=== PATIENT | male | born 2000 | race Caucasian/White ===

== ENCOUNTER → 2020-07-03 | Outpatient (CLI) | payer OTHER | END | disposition home or self-care (01) | LOC: LABWHC1 13:29 | PROVIDERS: ATTEND Family Medicine | DX: Z20.822 Contact with and (suspected) exposure to COVID-19 (principal) | CPT/HCPCS: U0003; C9803; U0005 ==

== ENCOUNTER 2021-10-07 20:49 | Emergency (ER) | payer OTHER ==
[2021-10-07 22:18] VITALS: BP 152/92; PULSE 72; RESP 18; TEMP 98.2
--- NOTE | 2021-10-08 00:37 | ED ---
General Adult HPI - General Chief complaint: Nausea/Vomiting/Diarrhea Stated complaint: Evaluation Time Seen by Provider: 10/07/21 23:36 Source: patient Mode of arrival: EMS - History of Present Illness Initial comments: 's patient is 21-year-old man resenting to be evaluated after he used a strong cannabis pen and then was not feeling well. Patient developed nausea and was fe eling very sick to stomach. Also somewhat off-balance. -: minutes(s) Location: abdomen Severity scale (1-10): 1 Quality: dull Consistency: now resolved Improves with: none Worsens with: none Associated Symptoms: nausea/vomiting - Related Data Allergies Allergy/AdvReac Type Severity Reaction Status Date / Time No Known Allergies Allergy Verified 10/07/21 22:19 Review of Systems ROS Statement: Those systems with pertinent positive or pertinent negative responses have been documented in the HPI. ROS Other: All systems not noted in ROS Statement are negative. Constitutional: Denies: fever, chills, weakness Eyes: Denies: vision change Respiratory: Denies: cough, dyspnea Cardiovascular: Denies: chest pain, palpitations Gastrointestinal: Reports: nausea. Denies: diarrhea, hematemesis, melena, hematochezia Genitourinary: Denies: dysuria, hematuria Musculoskeletal: Denies: back pain Skin: Denies: rash Neurological: Denies: headache, weakness Psychiatric: Reports: anxiety Past Medical History Additional Past Medical History / Comment(s): cyst on brain History of Any Multi-Drug Resistant Organisms: None Reported Past Surgical History: No Surgical Hx Reported Past Psychological History: No Psychological Hx Reported Smoking Status: Never smoker Past Alcohol Use History: Occasional Past Drug Use History: Marijuana General Exam General appearance: alert, in no apparent distress Head exam: Present: atraumatic, normocephalic Eye exam: Present: normal appearance. Absent: scleral icterus, conjunctival injection Neck exam: Present: normal inspection Respiratory exam: Present: normal lung sounds bilaterally. Absent: respiratory distress, wheezes, rales, rhonchi, stridor Cardiovascular Exam: Present: regular rate, normal rhythm, normal heart sounds. Absent: systolic murmur, diastolic murmur, rubs, gallop GI/Abdominal exam: Present: soft. Absent: distended, tenderness, guarding, rebound, rigid, mass Neurological exam: Present: alert Skin exam: Present: warm, dry, intact, normal color. Absent: rash Course Vital Signs 10/07/21 22:13 Temperature 98.2 F Pulse Rate 72 Respiratory 18 Rate Blood Pressure 152/92 O2 Sat by Pulse 99 Oximetry Disposition Clinical Impression: Adverse reaction to cannabis Disposition: HOME SELF-CARE Condition: Good Instructions (If sedation given, give patient instructions): Cannabis Abuse (ED) Is patient prescribed a controlled substance at d/c from ED?: No Referrals: Doris Ramos MD [Primary Care Provider] - 1-2 days
== END 2021-10-08 00:57 | disposition home or self-care (01) ==
LOC: EC 20:49
DX: R11.0 Nausea (principal); T40.715A Adverse effect of cannabis, initial encounter; F12.90 Cannabis use, unspecified, uncomplicated
CPT/HCPCS: 99283

== ENCOUNTER 2022-01-31 10:03 | Emergency (ER) | payer OTHER ==
[2022-01-31 11:28] VITALS: PULSE 68; RESP 16; TEMP 98
--- NOTE | 2022-01-31 12:57 | XR ---
EXAMINATION TYPE: XR lumbosacral spine min 4V DATE OF EXAM: 01/31/2022 12:49 PM INDICATION: Patient age:Male; 21 years old; Reason for study: Pain, no injury; COMPARISON: None TECHNIQUE: Frontal, lateral , bilateral oblique and coned in L5-S1 lateral views of the spine. FINDINGS: No evidence of any acute osseous pathology. No evidence of loss of vertebral body height i s seen. There is normal alignment of the lumbar vertebral bodies. No significant degeneration changes throughout the spine. IMPRESSION: No acute fracture.
[2022-01-31 14:17] VITALS: BP 140/80
== END 2022-01-31 14:16 ==
LOC: EC 10:03
DX: M54.50 Low back pain, unspecified (principal)
CPT/HCPCS: 72110; 99283

== ENCOUNTER → 2022-09-03 | Outpatient (CLI) | payer OTHER ==
[2022-09-04 02:52] LABS: ALT 84 U/L (10-49); AST 27 U/L (14-35); Albumin/Globulin Ratio 2.38 Ratio (1.60-3.17); Alkaline Phosphatase 109 U/L (41-126); BUN/Creat Ratio 12.56 Ratio (12.00-20.00); Blood Urea Nitrogen 11.3 mg/dL (9.0-27.0); Calcium 9.8 mg/dL (8.7-10.3); Carbon Dioxide 28.2 mmol/L (21.6-31.8); Chloride 101 mmol/L (96-109); Globulin 2.1 d/dL (1.6-3.3); Glucose 88 mg/dL (70-110); Sodium 140 mmol/L (135-145); Total Bilirubin <0.2 mg/dL (0.3-1.2); Total Protein 7.1 d/dL (6.2-8.2)
== END | disposition home or self-care (01) ==
LOC: LABWHC1 14:16
PROVIDERS: ATTEND Psychiatry & Neurology Neurology
DX: Z01.812 Encounter for preprocedural laboratory examination (principal); Z51.81 Encounter for therapeutic drug level monitoring
CPT/HCPCS: 36415; 80053

== ENCOUNTER 2023-04-11 06:11 | Emergency (ER) | payer OTHER ==
[2023-04-11 06:36] VITALS: RESP 18
[2023-04-11] MEDS ORDERED: LIDOCAINE 4% PATCH TOPICAL ONE (06:58)
--- NOTE | 2023-04-11 07:07 | ED ---
General Adult HPI - General Chief complaint: Recheck/Abnormal Lab/Rx Stated complaint: COLD Time Seen by Provider: 04/11/23 06:23 Source: patient, EMS, RN notes reviewed Mode of arrival: EMS Limitations: no limitations - History of Present Illness Initial comments: This is a 22 year old male who presents to the emergency department for cold hands. States that his car got stuck in the snow and he walked to [facility] without gloves on. He then developed cold hands and states that his fingertips are hurting. He called EMS from [facility] to bring him to the emergency department for evaluation. Also states that his ribs hurt from the stickers that EMS put on his chest. - Related Data Home Medications Medication Instructions Recorded Confirmed Butalbital-Acetaminophen 50-325 Mg 1 tab PO Q12H PRN 05/20/22 05/20/22 Tab OXcarbazepine [Trileptal] 300 mg PO BID 05/20/22 05/20/22 Valtoco 10mg Nasal [place] 1 spray NASAL ONCE PRN 05/20/22 05/20/22 Allergies Allergy/AdvReac Type Severity Reaction Status Date / Time No Known Allergies Allergy Verified 04/11/23 06:21 Review of Systems ROS Statement: Those systems with pertinent positive or pertinent negative responses have been documented in the HPI. ROS Other: All systems not noted in ROS Statement are negative. Past Medical History Past Medical History: No Reported History, Seizure Disorder Additional Past Medical History / Comment(s): cyst on brain History of Any Multi-Drug Resistant Organisms: None Reported Past Surgical History: No Surgical Hx Reported Past Psychological History: No Psychological Hx Reported Smoking Status: Never smoker Past Alcohol Use History: Occasional Past Drug Use History: Marijuana General Exam Limitations: no limitations General appearance: alert, in no apparent distress Head exam: Present: atraumatic, normocephalic, normal inspection Respiratory exam: Present: normal lung sounds bilaterally. Absent: respiratory distress, wheezes, rales, rhonchi, stridor Cardiovascular Exam: Present: regular rate, normal rhythm, normal heart sounds. Absent: systolic murmur, diastolic murmur, rubs, gallop, clicks Extremities exam: Present: other (Bilateral hands are warm, 2+ radial pulses and capillary refill <1 second) Neurological exam: Present: alert, oriented X3, CN II-XII intact Psychiatric exam: Present: normal affect, normal mood Skin exam: Present: warm, dry, intact, normal color. Absent: rash Course Vital Signs 04/11/23 04/11/23 06:20 07:44 Temperature 98.2 F 98.3 F Pulse Rate 86 81 Respiratory 18 18 Rate Blood Pressure 126/80 128/72 O2 Sat by Pulse 98 98 Oximetry Medical Decision Making - Medical Decision Making This is a 22-year-old male who presents to the emergency department for cold hands. Was pt. sent in by a medical professional or institution? @ -No Did you speak to anyone other than the patient for history? @ -No Did you review nursing and triage notes? @ -Yes, and I agree, it is accurate with regards to the patient's symptoms. Were old charts reviewed? @ -No Differential Diagnosis? @ -Differential Cold Hands: Raynaud's, weather, hypothyroidism, anemia, this is not meant to be an all- inclusive list. EKG interpreted by me (3pts min.)? @ -Not obtained X-rays interpreted by me (1pt min.)? @ -Not obtained CT interpreted by me (1pt min.)? @ -Not obtained U/S interpreted by me (1pt. min.)? @ -Not obtained What testing was considered but not performed? (CT, X-rays, U/S, labs)? Why? @ -None What meds were considered but not given? Why? @ -None Did you discuss the management of the patient with other professionals? @ -No Did you reconcile home meds? @ -No Was smoking cessation discussed for >3mins.? @ -No Was critical care preformed (if so, how long)? @ -No Were there social determinants of health that impacted care today? How? (Homelessness, low income, unemployed, alcoholism, drug addiction, transportatio n, low edu. Level, literacy, decrease access to med. care, halfway, rehab)? @ -No Was there de-escalation of care discussed even if they declined? (Discuss DNR or withdrawal of care, Hospice)? @ -No What co-morbidities impacted this encounter? (DM, HTN, Smoking, COPD, CAD, Cancer, CVA, Hep., AIDS, mental health diagnosis, sleep apnea, morbid obesity)? @ -None Was patient admitted / discharged? @ -Discharged. Patient's symptoms had started to improve when I went to evaluate him and his hands were warm and well perfused. I offered Ibuprofen or Tylenol for pain relief, however he declined. Discussed with the patient that cold exposure can lead to pain in his hands and I advised wearing gloves to reduce the severity of this in the future. He was warmed up in the emergency department and discharged home in stable condition. Undiagnosed new problem with uncertain prognosis? @ -None Drug Therapy requiring intensive monitoring for toxicity (Heparin, Nitro, Insulin, Cardizem)? @ -None Were any procedures done? @ -None Diagnosis/symptom? @ -Cold hands Acute, or Chronic, or Acute on Chronic? @ -Acute Uncomplicated (without systemic symptoms) or Complicated (systemic symptoms)? @ -Uncomplicated Side effects of treatment? @ -None Exacerbation, Progression, or Severe Exacerbation] @ -Not applicable Poses a threat to life or bodily function? @ -No Return precautions reviewed in depth, the patient is instructed to return to the emergency department with any new, worsening, or concerning symptoms. Patient verbalized understanding. This case was discussed in detail with the attending ED physician, Dr. Kelly. Presentation, findings, and treatment plan discussed in detail as well. Disposition Clinical Impression: Cold hands Disposition: HOME SELF-CARE Additional Instructions: Return to the emergency department with any new, worsening, or concerning symptoms. Alternate with ibuprofen and Tylenol as needed for pain relief. Follow up with your primary care provider in 1-2 days. Is patient prescribed a controlled substance at d/c from ED?: No Referrals: Doris Ramos MD [Primary Care Provider] - 1-2 days Time of Disposition: 07:40
[2023-04-11] MEDS ORDERED: IBUPROFEN 600 MG STARTER PACK 4 TAB BTL PO STA (07:13)
[2023-04-11 07:47] VITALS: BP 128/72; PULSE 81; TEMP 98.3
== END 2023-04-11 07:44 | disposition home or self-care (01) ==
LOC: EC 06:11
DX: T68.XXXA Hypothermia, initial encounter (principal); G40.909 Epilepsy, unspecified, not intractable, without status epilepticus; F12.90 Cannabis use, unspecified, uncomplicated; Z79.899 Other long term (current) drug therapy; X31.XXXA Exposure to excessive natural cold, initial encounter
CPT/HCPCS: 99283

== ENCOUNTER 2023-09-23 12:11 | Emergency (ER) | payer OTHER ==
--- NOTE | 2023-09-23 13:18 | ED ---
General Adult HPI - General Chief complaint: Extremity Injury, Upper Stated complaint: R Hand Injury Time Seen by Provider: 09/23/23 13:11 Source: patient Mode of arrival: ambulatory Limitations: no limitations - History of Present Illness Initial comments: Dictation was produced using [employer] dictation software. please excuse any grammatical, word or spelling errors. Chief Complaint: 23-year-old male presents with left hand pain History of Present Illness: Patient 23-year-old male yesterday he was helping someone remove a bumper. He states that he jammed his hand. Patient complaining of pain to his PIPs to the left 3 to fifth digit. Patient went to local pharmacy and bought a hand splint kit. States that the splint helps. Patient still able to move all his fingers. The ROS documented in this emergency department record has been reviewed and confirmed by me. Those systems with pertinent positive or negative responses have been documented in the HPI. All other systems are other negative and/or noncontributory. - Related Data Home Medications Medication Instructions Recorded Confirmed Butalbital-Acetaminophen 50-325 Mg 1 tab PO Q12H PRN 05/20/22 05/20/22 Tab OXcarbazepine [Trileptal] 300 mg PO BID 05/20/22 05/20/22 Valtoco 10mg Nasal [place] 1 spray NASAL ONCE PRN 05/20/22 05/20/22 Allergies Allergy/AdvReac Type Severity Reaction Status Date / Time No Known Allergies Allergy Verified 04/11/23 06:21 Review of Systems ROS Statement: Those systems with pertinent positive or pertinent negative responses have been documented in the HPI. ROS Other: All systems not noted in ROS Statement are negative. Past Medical History Past Medical History: Seizure Disorder Additional Past Medical History / Comment(s): cyst on brain History of Any Multi-Drug Resistant Organisms: None Reported Past Surgical History: No Surgical Hx Reported Past Psychological History: No Psychological Hx Reported Smoking Status: Never smoker Past Alcohol Use History: Occasional Past Drug Use History: Marijuana General Exam - General Exam Comments Initial Comments: General: Well-appearing, nontoxic, no acute distress. Head: Normocephalic, atraumatic Eyes: PERRLA, EOMI ENT: Airway patent Chest: Nonlabored breathing Skin: No visual rash, normal skin tone Neuro: Alert and oriented 3 Musculoskeletal: No gross abnormalities Left hand: Slight palpatory tenderness to the PIP of digits of the left hand of 3 to fifth. No gross deformities. Limitations: no limitations Course Vital Signs 09/23/23 12:34 Temperature 98.4 F Pulse Rate 94 Respiratory 16 Rate Blood Pressure 139/79 O2 Sat by Pulse 98 Oximetry Medical Decision Making - Medical Decision Making Was pt. sent in by a medical professional or institution (, PA, SURGICAL ONCOLOGIST, urgent care, hospital, or shelter...) When possible be specific @ -[No] Did you speak to anyone other than the patient for history (EMS, parent, family, police, friend...)? What history was obtained from this source @ -[No] Did you review nursing and triage notes (agree or disagree)? Why? @ -[I reviewed and agree with nursing and triage notes] Were old charts reviewed (outside hosp., previous admission, EMS record, old EKG, old radiological studies, urgent care reports/EKG's, shelter records)? Report findings @ -[No old charts were reviewed] Differential Diagnosis (chest pain, altered mental status, abdominal pain women, abdominal pain men, vaginal bleeding, musculoskeletal, weakness, fever, dyspnea, syncope, headache, dizziness, GI bleed, back pain, seizure, CVA, palpatations, mental health)? @ -Finger fracture, finger sprain, finger laceration EKG interpreted by me (3pts min.). @ -[None done] X-rays interpreted by me (1pt min.). @ -handnd x-rays unremarkable for any acute processes CT interpreted by me (1pt min.). @ -[None done] U/S interpreted by me (1pt. min.). @ -[None done] What testing was considered but not performed or refused? (CT, X-rays, U/S, labs)? Why? @ -[None] What meds were considered but not given or refused? Why? @ -[None] Was smoking cessation discussed for >3mins.? @ -[No] Were there social determinants of health that impacted care today? How? (Homelessness, low income, unemployed, alcoholism, drug addiction, transportation, low edu. Level, literacy, decrease access to med. care, senior care, rehab)? @ -[No] Was there de-escalation of care discussed even if they declined (Discuss DNR or withdrawal of care, Hospice)? DNR status @ -[No] What co-morbidities impacted this encounter? (DM, HTN, Smoking, COPD, CAD, Cancer, CVA, ARF, Chemo, Hep., AIDS, mental health diagnosis, sleep apnea, morbid obesity)? @ -[None] Was patient admitted / discharged? Hospital course, mention meds given and route, prescriptions, significant lab abnormalities, going to OR and other pertinent info. @ -23-year-old male presents to the emergency department clinical presentation with finger sprain. Patient jammed his finger yesterday. Vital signs stable. X-rays unremarkable. Patient discharged advised follow-up with primary care doctor. Did you discuss the management of the patient with other professionals (professionals i.e. , PA, SURGICAL ONCOLOGIST, lab, RT, psych nurse, social media senior associate, swimming pool maintenance, teacher, admissions officer, rn case mgr)? Give summary @ -[No] Was critical care preformed (if so, how long)? @ -[No] Undiagnosed new problem with uncertain prognosis? @ -[No] Drug Therapy requiring intensive monitoring for toxicity (Heparin, Nitro, Insulin, Cardizem)? @ -[No] Were any procedures done? @ -[No] Diagnosis/symptom? Acute, or Chronic, or Acute on Chronic? Uncomplicated (without systemic symptoms) or Complicated (systemic symptoms)? @ -Finger sprain Side effects of treatment? @ -[No] Exacerbation, Progression, or Severe Exacerbation? @ -[No] Poses a threat to life or bodily function? How? (Chest pain, [place], [place], pneumonia, PE, COPD, DKA, ARF, appy, cholecystitis, CVA, Diverticulitis, Homicidal, Suicidal, threat to staff... and all critical care pts) @ -[No] Disposition Clinical Impression: Finger sprain Disposition: HOME SELF-CARE Condition: Good Instructions (If sedation given, give patient instructions): Finger Sprain (ED) Is patient prescribed a controlled substance at d/c from ED?: No Referrals: Doris Ramos MD [Primary Care Provider] - 1-2 days Time of Disposition: 14:51
--- NOTE | 2023-09-23 13:47 | XR ---
EXAMINATION TYPE: XR hand complete LT DATE OF EXAM: 09/23/2023 CLINICAL HISTORY: pain TECHNIQUE: Frontal, lateral and oblique images of the left hand are obtained. COMPARISON: None. FINDINGS: There is no acute fracture/dislocation evident. The joint spaces appear within normal limi ts. The overlying soft tissue appears unremarkable. IMPRESSION: There is no acute fracture or dislocation. ICD 10 NO FRACTURE, INITIAL EVALUATION
[2023-09-23 15:06] VITALS: BP 124/83; PULSE 80; RESP 18; TEMP 98
== END 2023-09-23 15:05 | disposition home or self-care (01) ==
LOC: EC 12:11
DX: S63.619A Unspecified sprain of unspecified finger, initial encounter (principal); F12.90 Cannabis use, unspecified, uncomplicated; W23.0XXA Caught, crushed, jammed, or pinched between moving objects, initial encounter
CPT/HCPCS: 99283

== ENCOUNTER 2024-07-01 11:04 | Emergency (ER) | payer OTHER ==
--- NOTE | 2024-07-01 11:34 | ED ---
Neck Injury/Pain HPI - General Chief Complaint: Neck Pain/Injury Stated Complaint: pain between shoulder blades Time Seen by Provider: 07/01/24 11:16 Source: patient, RN notes reviewed Mode of arrival: ambulatory Limitations: no limitations - History of Present Illness Initial Comments: 44-year-old male presents emergency department with chief complaint of neck discomfort. Patient states he slipped getting up this morning take a bottle for his baby. He states he did not strike his head he states he had struck his mattress. He states he has some soreness in his neck only with movement denies any upper extremity weakness no blood thinners. Patient denies other associated symptoms. - Related Data Home Medications Medication Instructions Recorded Confirmed Butalbital-Acetaminophen 50-325 Mg 1 tab PO Q12H PRN 05/20/22 05/20/22 Tab OXcarbazepine [Trileptal] 300 mg PO BID 05/20/22 05/20/22 Valtoco 10mg Nasal [place] 1 spray NASAL ONCE PRN 05/20/22 05/20/22 Previous Rx's Medication Instructions Recorded Cyclobenzaprine [Flexeril] 10 mg PO TID PRN #15 tab 07/01/24 Ibuprofen [Motrin] 600 mg PO Q8HR PRN #20 tab 07/01/24 Allergies Allergy/AdvReac Type Severity Reaction Status Date / Time No Known Allergies Allergy Verified 07/01/24 11:14 Review of Systems ROS Statement: Those systems with pertinent positive or pertinent negative responses have been documented in the HPI. ROS Other: All systems not noted in ROS Statement are negative. Past Medical History Past Medical History: Seizure Disorder Additional Past Medical History / Comment(s): cyst on brain History of Any Multi-Drug Resistant Organisms: None Reported Past Surgical History: No Surgical Hx Reported Past Psychological History: No Psychological Hx Reported Smoking Status: Never smoker Past Alcohol Use History: Occasional Past Drug Use History: Marijuana General Exam Limitations: no limitations General appearance: alert, in no apparent distress Head exam: Present: atraumatic, normocephalic, normal inspection Eye exam: Present: normal appearance, PERRL, EOMI. Absent: scleral icterus, conjunctival injection, periorbital swelling ENT exam: Present: normal exam, normal oropharynx, mucous membranes moist Neck exam: Present: normal inspection, tenderness (Paraspinal, no cervical spine tenderness no step-off deformity), full ROM. Absent: meningismus, lymphadenopathy Respiratory exam: Present: normal lung sounds bilaterally. Absent: respiratory distress, wheezes, rales, rhonchi, stridor Cardiovascular Exam: Present: regular rate, normal rhythm, normal heart sounds. Absent: systolic murmur, diastolic murmur, rubs, gallop, clicks GI/Abdominal exam: Present: soft, normal bowel sounds. Absent: distended, tenderness, guarding, rebound, rigid Back exam: Present: full ROM, other (Upper extremity strength equal bilaterally neurovascular intact). Absent: tenderness, paraspinal tenderness, vertebral t enderness Neurological exam: Present: alert, oriented X3, CN II-XII intact, reflexes normal. Absent: motor sensory deficit Skin exam: Present: warm, dry, intact, normal color. Absent: rash Course Vital Signs 07/01/24 11:10 Temperature 97.8 F Pulse Rate 104 H Respiratory 20 Rate Blood Pressure 130/75 O2 Sat by Pulse 99 Oximetry Medical Decision Making - Medical Decision Making Was pt. sent in by a medical professional or institution (, PA, RESIDENCY COORDINATOR, urgent care, hospital, or assisted...) When possible be specific @ -No Did you speak to anyone other than the patient for history (EMS, parent, family, police, friend...)? What history was obtained from this source @ -No Did you review nursing and triage notes (agree or disagree)? Why? @ -I reviewed and agree with nursing and triage notes Were old charts reviewed (outside hosp., previous admission, EMS record, old EKG, old radiological studies, urgent care reports/EKG's, assisted records)? Report findings @ -No old charts were reviewed Differential Diagnosis (chest pain, altered mental status, abdominal pain women, abdominal pain men, vaginal bleeding, weakness, fever, dyspnea, syncope, headache, dizziness, GI bleed, back pain, seizure, CVA, palpatations, mental health, musculoskeletal)? @ -Cervical strain, cervical fracture, muscle spasm EKG interpreted by me (3pts min.). @ -None X-rays interpreted by me (1pt min.). @ -X-ray cervical spine showing no acute malalignment no acute fracture CT interpreted by me (1pt min.). @ -None done U/S interpreted by me (1pt. min.). @ -None done What testing was considered but not performed or refused? (CT, X-rays, U/S, labs)? Why? @ -None What meds were considered but not given or refused? Why? @ -None Did you discuss the management of the patient with other professionals (professionals i.e. , PA, RESIDENCY COORDINATOR, lab, RT, psych nurse, social work msw, customs brokerage manager, teacher, banking officer, onsite case manager)? Give summary @ -No Was smoking cessation discussed for >3mins.? @ -No Was critical care preformed (if so, how long)? @ -No Were there social determinants of health that impacted care today? How? (Homelessness, low income, unemployed, alcoholism, drug addiction, transportation, low edu. Level, literacy, decrease access to med. care, long term, rehab)? @ -No Was there de-escalation of care discussed even if they declined (Discuss DNR or withdrawal of care, Hospice)? DNR status @ -No What co-morbidities impacted this encounter? (DM, HTN, Smoking, COPD, CAD, Cancer, CVA, ARF, Chemo, Hep., AIDS, mental health diagnosis, sleep apnea, morbid obesity)? @ -None Was patient admitted / discharged? Hospital course, mention meds given and route, prescriptions, significant lab abnormalities, going to OR and other pertinent info. @ -Discharged patient has paraspinal trapezius tenderness likely due to muscle spasms. Patient be discharged in stable condition. Return parameters discussed. Patient had no head injury. Undiagnosed new problem with uncertain prognosis? @ -No Drug Therapy requiring intensive monitoring for toxicity (Heparin, Nitro, Insulin, Cardizem)? @ -No Were any procedures done? @ -No Diagnosis/symptom? @ -Trapezius muscle spasm Acute, or Chronic, or Acute on Chronic? @ -Acute Uncomplicated (without systemic symptoms) or Complicated (systemic symptoms)? @ -Uncomplicated Side effects of treatment? @ -No Exacerbation, Progression, or Severe Exacerbation? @ -No Poses a threat to life or bodily function? How? (Chest pain, [place], [place], pneumonia, PE, COPD, DKA, ARF, appy, cholecystitis, CVA, Diverticulitis, Homicidal, Suicidal, threat to staff... and all critical care pts) @ -No Disposition Clinical Impression: Strain of neck muscle, Trapezius muscle spasm Disposition: HOME SELF-CARE Condition: Serious Instructions (If sedation given, give patient instructions): Cervical Strain (ED) Additional Instructions: Please return to the Emergency Department if symptoms worsen or any other concerns. Prescriptions: Cyclobenzaprine [Flexeril] 10 mg PO TID PRN #15 tab PRN Reason: Muscle Spasm Ibuprofen [Motrin] 600 mg PO Q8HR PRN #20 tab PRN Reason: Pain Is patient prescribed a controlled substance at d/c from ED?: No Referrals: Doris Ramos MD [Primary Care Provider] - 1-2 days Time of Disposition: 12:06
--- NOTE | 2024-07-01 11:43 | XR ---
EXAMINATION TYPE: XR cervical spine comp DATE OF EXAM: 07/01/2024 11:38 AM COMPARISON: None. CLINICAL INDICATION: Male, 24 years old with history of pain, pain following trauma trip and fall TECHNIQUE: 5 view(s) obtained. FINDINGS: Prevertebral space is normal. Disc heights are preserved. Vertebral body heights are preserved. Align ment is preserved. Posterior spinal lamellar line is intact. Odontoid is mildly limited in the fronta l projection with overlying incisors. Follow-up can be performed as clinically indicated. IMPRESSION: 1. No suspicious acute changes cervical spine. [facility], , 07/01/2024 11:41 AM
[2024-07-01 12:13] VITALS: BP 125/76; PULSE 94; RESP 18; TEMP 98
== END 2024-07-01 12:15 | disposition home or self-care (01) ==
LOC: EC 11:04
DX: S16.1XXA Strain of muscle, fascia and tendon at neck level, initial encounter (principal); M62.838 Other muscle spasm; W01.0XXA Fall on same level from slipping, tripping and stumbling without subsequent striking against object, initial encounter; Y92.009 Unspecified place in unspecified non-institutional (private) residence as the place of occurrence of the external cause
CPT/HCPCS: 72050; 99283

== ENCOUNTER 2024-10-07 16:20 | Emergency (ER) | payer OTHER ==
--- NOTE | 2024-10-07 16:52 | ED ---
Wound/Laceration HPI - General Chief Complaint: Wound/Laceration Stated Complaint: Syncope, Laceration - [facility] Time Seen by Provider: 10/07/24 16:32 Source: patient, RN notes reviewed Mode of arrival: EMS Limitations: no limitations - History of Present Illness Initial Comments: This is a 24-year-old male presenting via EMS for left wrist laceration occur ring at work about 1 hour prior to arrival. Patient states he was grabbing a dish from the dish rack at work when he accidentally cut his left wrist. Patient states due to bleeding, he began feeling lightheaded and appearing pale according to coworkers before he suffered a transient syncopal episode, falling backwards before spontaneous regain of consciousness several seconds later. Patient suspects he may have hit the back of his head but denies head pain, headache, neck pain, extremity paresthesia/weakness, dizziness, vision changes, nausea/vomiting. Patient states last tetanus vaccination was in 2019. Onset/Timin -: hour(s) Extremity Location: Left: Wrist Place: work Patient Tetanus UTD: Yes (2019) Context: accidental Associated Symptoms: other (Vasovagal syncope) Treatments Prior to Arrival: bandage - Related Data Home Medications Medication Instructions Recorded Confirmed Butalbital-Acetaminophen 50-325 Mg 1 tab PO Q12H PRN 05/20/22 05/20/22 Tab OXcarbazepine [Trileptal] 300 mg PO BID 05/20/22 05/20/22 Valtoco 10mg Nasal [place] 1 spray NASAL ONCE PRN 05/20/22 05/20/22 Previous Rx's Medication Instructions Recorded Cyclobenzaprine [Flexeril] 10 mg PO TID PRN #15 tab 07/01/24 Ibuprofen [Motrin] 600 mg PO Q8HR PRN #20 tab 07/01/24 Bacitracin/Polymyx Oint 1 applic TOPICAL BID #15 gm 10/07/24 [Polysporin Oint] Cephalexin [Keflex] 500 mg PO Q6HR 1 Days #12 cap 10/07/24 Allergies Allergy/AdvReac Type Severity Reaction Status Date / Time No Known Allergies Allergy Verified 10/07/24 16:38 Review of Systems ROS Statement: Those systems with pertinent positive or pertinent negative responses have been documented in the HPI. ROS Other: All systems not noted in ROS Statement are negative. Past Medical History Past Medical History: Seizure Disorder Additional Past Medical History / Comment(s): cyst on brain History of Any Multi-Drug Resistant Organisms: None Reported Past Surgical History: No Surgical Hx Reported Past Psychological History: No Psychological Hx Reported Smoking Status: Never smoker Past Alcohol Use History: Occasional Past Drug Use History: Marijuana General Exam Limitations: no limitations General appearance: alert, in no apparent distress Head exam: Present: atraumatic (No obvious wound, contusion, hematoma, depression, tenderness of scalp), normocephalic, normal inspection Eye exam: Present: normal appearance, PERRL, EOMI. Absent: scleral icterus, conjunctival injection, periorbital swelling Pupils: Present: normal accommodation ENT exam: Present: normal exam, mucous membranes moist Neck exam: Present: normal inspection. Absent: tenderness, meningismus, lymphadenopathy Respiratory exam: Present: normal lung sounds bilaterally. Absent: respiratory distress, wheezes, rales, rhonchi, stridor, accessory muscle use Cardiovascular Exam: Present: regular rate, normal rhythm, normal heart sounds. Absent: systolic murmur, diastolic murmur, rubs, gallop, clicks GI/Abdominal exam: Present: soft, normal bowel sounds. Absent: distended, tenderness, guarding, rebound, rigid Extremities exam: Present: full ROM, normal capillary refill, other (1.5 cm horizontal laceration noted ulnar aspect of left ventral wrist with exposure of flexor tendon and laceration of the tendon sheath. Distal neurovascular and motor function intact. 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 Ulnar pulse +2, capillary refill less than 2 seconds). Absent: tenderness, pedal edema, joint swelling, calf tenderness Back exam: Present: normal inspection Neurological exam: Present: alert, oriented X3, CN II-XII intact Psychiatric exam: Present: normal affect, normal mood Skin exam: Present: warm, dry, intact, normal color. Absent: rash Course Vital Signs 10/07/24 10/07/24 16:30 17:05 Temperature 97.8 F Pulse Rate 52 L 57 L Respiratory 18 16 Rate Blood Pressure 102/60 114/79 O2 Sat by Pulse 96 99 Oximetry Procedures - Laceration Laceration #1 Consent Obtained: verbal consent Indication: laceration Site: upper extremity (Left wrist) Size (cm): 2 Description: linear Depth: simple, single layer Anesthetic Used: lidocaine 1% Anesthesia Technique: local infiltration Amount (mls): 3 Pre-repair: wound explored, irrigated extensively Type of Sutures: nylon Size of Sutures: 5-0 Number of Sutures: 7 Technique: running Patient Tolerated Procedure: well, no complications Additional Comments: Patient maintains full range of motion and 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 Medical Decision Making - Medical Decision Making Was pt. sent in by a medical professional or institution (, PA, HVAC SERVICE TECH, urgent care, hospital, or [facility]...) When possible be specific @ -[No] Did you speak to anyone other than the patient for history (EMS, parent, family, police, friend...)? What history was obtained from this source @ -[No] Did you review nursing and triage notes (agree or disagree)? Why? @ -[I reviewed and agree with nursing and triage notes] Were old charts reviewed (outside hosp., previous admission, EMS record, old EKG, old radiological studies, urgent care reports/EKG's, [facility] records)? Report findings @ -[No old charts were reviewed] Differential Diagnosis (chest pain, altered mental status, abdominal pain women, abdominal pain men, vaginal bleeding, weakness, fever, dyspnea, syncope, headache, dizziness, GI bleed, back pain, seizure, CVA, palpatations, mental health, musculoskeletal)? @ -Differential Syncope: Valvular disease, hypertrophic cardiomyopathy, pulmonary embolism, tamponade, tachycardia, bradycardia, [place], hypovolemia, hemorrhage, dissection, anemia, intracranial hemorrhage, seizure, hypoglycemia, carbon monoxide poisoning, this is not meant to be an all-inclusive list. Differential Musculoskeletal Muscular strain, contusion, ligament sprain, fracture, arthritis, septic arthritis, bursitis, cellulitis, muscle spasm, nerve compression, DVT, arterial occlusion, herpes zoster, electrolyte abnormality, tumor.... This is not meant to be in all inclusive list EKG interpreted by me (3pts min.). @ -Sinus bradycardia without ST deviation or T wave inversion. Ventricular rate 53 bpm, MEAGAN 146 ms, QRS 98 ms, QTc 382 ms. X-rays interpreted by me (1pt min.). @ -[None done] CT interpreted by me (1pt min.). @ -[None done] U/S interpreted by me (1pt. min.). @ -[None done] What testing was considered but not performed or refused? (CT, X-rays, U/S, labs)? Why? @ -[None] What meds were considered but not given or refused? Why? @ -[None] Did you discuss the management of the patient with other professionals (professionals i.e. , PA, HVAC SERVICE TECH, lab, RT, psych nurse, social research assistant, refueling ramp attendant, teacher, chief innovation officer, casework specialist)? Give summary @ -[No] Was smoking cessation discussed for >3mins.? @ -[No] Was critical care preformed (if so, how long)? @ -[No] Were there social determinants of health that impacted care today? How? (Homelessness, low income, unemployed, alcoholism, drug addiction, transportation, low edu. Level, literacy, decrease access to med. care, group home, rehab)? @ -[No] Was there de-escalation of care discussed even if they declined (Discuss DNR or withdrawal of care, Hospice)? DNR status @ -[No] What co-morbidities impacted this encounter? (DM, HTN, Smoking, COPD, CAD, Cancer, CVA, ARF, Chemo, Hep., AIDS, mental health diagnosis, sleep apnea, morbid obesity)? @ -[None] Was patient admitted / discharged? Hospital course, mention meds given and route, prescriptions, significant lab abnormalities, going to OR and other pertinent info. @ -[hospital course] Undiagnosed new problem with uncertain prognosis? @ -[No] Drug Therapy requiring intensive monitoring for toxicity (Heparin, Nitro, Insulin, Cardizem)? @ -[No] Were any procedures done? @ -[No] Diagnosis/symptom? @ -Left wrist laceration, vasovagal syncope Acute, or Chronic, or Acute on Chronic? @ -Acute Uncomplicated (without systemic symptoms) or Complicated (systemic symptoms)? @ -Uncomplicated Side effects of treatment? @ -[No] Exacerbation, Progression, or Severe Exacerbation? @ -[No] Poses a threat to life or bodily function? How? (Chest pain, [place], [place], pneumonia, PE, COPD, DKA, ARF, appy, cholecystitis, CVA, Diverticulitis, Homicidal, Suicidal, threat to staff... and all critical care pts) @ -[No] Disposition Clinical Impression: Laceration Disposition: HOME SELF-CARE Condition: Good Instructions (If sedation given, give patient instructions): Care For Your Stitches (ED) Additional Instructions: Keep your sutured area clean with anti-bacterial soap and water at least twice daily along with application of antibiotic ointment and dressing change. Follow-up with medical facility in 710 days for suture removal. Prescriptions: Cephalexin [Keflex] 500 mg PO Q6HR 1 Days #12 cap Bacitracin/Polymyx Oint [Polysporin Oint] 1 applic TOPICAL BID #15 gm Is patient prescribed a controlled substance at d/c from ED?: No Referrals: Doris Ramos MD [Primary Care Provider] - 1-2 days Time of Disposition: 17:48
[2024-10-07] MEDS: LIDOCAINE 1% INJ 10MG/ML (20 ML MDV) SQ ONE (16:59)
[2024-10-07] MEDS: CEPHALEXIN 500 MG CAP PO STA ×2 (17:00→17:59)
[2024-10-07 17:10] VITALS: RESP 16
[2024-10-07 17:57] VITALS: BP 104/72; PULSE 66; TEMP 98.3
== END 2024-10-07 18:08 | disposition home or self-care (01) ==
LOC: EC 16:20
DX: S61.512A Laceration without foreign body of left wrist, initial encounter (principal); R55 Syncope and collapse; W26.8XXA Contact with other sharp object(s), not elsewhere classified, initial encounter; Y99.0 Civilian activity done for income or pay
CPT/HCPCS: 99284; 12001; 93005; J2003